=== PATIENT | male | born 1965 | race Caucasian/White ===

== ENCOUNTER 2016-10-07 12:02 | Emergency (ER) | payer OTHER ==
--- NOTE | 2016-10-07 13:34 | DIAGNOSTIC IMAGING REPORT ---
PROCEDURE: XR CHEST 2 VIEW INDICATION: COUGH TECHNIQUE: PA and lateral views. COMPARISON: None. FINDINGS: Lungs are clear and hyperexpanded. Heart and mediastinum are normal. Thorax is normal. IMPRESSION: 1. Negative chest. COPD
--- NOTE | 2016-10-07 13:43 | ED ORDER SUMMARY ---
..... Patient: POONAM GODOY OrderSheet [facility] VisitID: [id number] [address] [place] [address] 51y, M Registration Date/Time: 10/07/2016 ORDER SHEET Weight: 83.9 kg (stated) Allergies: None GENERAL ORDERS: Chest 2V Urgent (13:01 10/07/2016 Mikala Parker) (Ack 13:10 NHouse ER Tech1) (13:51 JBoardley R.N.) MEDICATION ORDERS: DuoNeb Neb Tx 1 unit dose (NOW) (13:10/07/2016 Mikala Parker) (Ack 13:11 JBoardley R.N.) (Cancelled: Physician Order13:51 JBoarviky R.N.) IV FLUIDS: ORDER SHEET NOTES: [Electronically signed by Ray Benitez R.N. (14:00 10/07/2016)] [Electronically signed by Clementine Dockery P.A.-C (14:06 10/07/2016)] [Electronically locked/signed by Ray Benitez R.N. (14:00 10/07/2016)]
--- NOTE | 2016-10-07 13:43 | ED ORDER SUMMARY ---
..... Patient: POONAM GODOY OrderSheet [facility] VisitID: [id number] [address] [place] [address] 51y, M Registration Date/Time: 10/07/2016 ORDER SHEET Weight: 83.9 kg (stated) Allergies: None GENERAL ORDERS: Chest 2V Urgent (13:01 10/07/2016 Mikala Parker) (Ack 13:10 NHouse ER Tech1) (13:51 JBoardley R.N.) MEDICATION ORDERS: DuoNeb Neb Tx 1 unit dose (NOW) (13:10/07/2016 Mikala Parker) (Ack 13:11 JBoardley R.N.) (Cancelled: Physician Order13:51 JBoarviky R.N.) IV FLUIDS: ORDER SHEET NOTES: [Electronically signed by Ray Benitez R.N. (14:00 10/07/2016)] [Electronically signed by Clementine Dockery P.A.-C (14:06 10/07/2016)] [Electronically locked/signed by Ray Benitez R.N. (14:00 10/07/2016)]
--- NOTE | 2016-10-07 13:43 | ED CLINICAL REPORT ---
Clinical Report - Physicians/Mid Levels [facility] [address] [place] [address] 10/07/2016 12:06 Patient: POONAM GODOY Time Seen: 12:55 Oct 07 2016. Arrived- By private vehicle. Historian- patient. 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 It has been intermittent and waxing/waning. The patient has had sputum production and a cough. (she reports battling a cough over the last 1 month, has had a history of sore throat, chills, on the measured temperature. His girlfriend has had similar symptoms, for about the same time. He has not been seen by his regular primary care provider in [place]. Has taken Mucinex [id number], with minimal relief. Reports he is a smoker, pack every 2-3 days. Denies any recent travel. Denies any hemoptysis. Denies chest pain, epigastric pain. Reports at times rhinorrhea or congestion. Denies shortness of breath. Denies taking breathing treatments on a regular basis, or history of asthma or COPD. Has not been on antibiotics or steroids recently.). REVIEW OF SYSTEMS No vomiting, diarrhea, hay fever, skin rash or enlarged lymph nodes. All systems otherwise negative, except as recorded above. PAST HISTORY Problems: no known problems. Additional Surgeries: Right ankle surgery. Medications: None. Allergies: None. SOCIAL HISTORY Smoker- current status unknown. No alcohol use. ADDITIONAL NOTES The nursing notes have been reviewed. PHYSICAL EXAM Vital Signs: 10/07/2016 12:28 BP: 148/95. HR: 87. RR: 14. O2 saturation: 99%. Temp: 97.9 F. Have been reviewed. Appearance: Alert. No acute distress. Eyes: Eyes normal inspection. CVS: Normal heart rate and rhythm. Heart sounds normal. Respiratory: Expiratory mild bilateral wheezes present. No accessory muscle use or retractions. Abdomen: Soft. LABS, X-RAYS, AND EKG Chest X-ray: (IMPRESSION: 1. Negative chest. COPD Electronically Final signed by:Gab Perkins MD 10/07/2016 1:38:12 PM). PROGRESS AND PROCEDURES Course of Care: patient here in the ER, with wheezing which improved with cough. Patient was otherwise negative chest x-ray for any acute infiltrate. Patient with no chest pain, no hemoptysis, will treat for acute flare of bronchitis, and with underlying COPD. Patient to follow up outpatient, and reactive to his high blood pressure reading today. He otherwise has no headache. Wheezing resolved. NO systemic disease process. 10/07/2016 13:51 BP: 148/70. HR: 80. RR: 12. O2 saturation: 100%. Temp: 98.1 F. Patient is stable. Physical exam findings are improved. Symptoms better. Patient/family counseled. Disposition: Discharged. CLINICAL IMPRESSION Acute exacerbation of COPD. Hypertension. INSTRUCTIONS Rest. Drink plenty of fluids. (hydrate plenty). Prescription Medications: Ventolin HFA oral inhaler: inhale 1 puff via spacer every 4 hours for 1 week, as needed for wheezing, until symptoms improve. Dispense one (1) unit Substitution is not permissible. Zithromax 250 mg tablets: take 2 orally today, followed by 1 daily for the next 4 days. No refills. Substitution is permissible. Follow-up: Follow up with your doctor in three days. (Electronically signed by Clementine Dockery P.A.-C 10/07/2016 14:06)
--- NOTE | 2016-10-07 13:43 | ED NURSING NOTES ---
Clinical Report - Nurses [facility] [place] [address] 10/07/2016 12:06 Patient: POONAM GODOY TRIAGE Triage time 12:28. Acuity: LEVEL 4. Chief Complaint: COUGH. 12:10/07/16. 12:10/07/16. --12:31 Ray Benitez R.N. 12:10/07/16. BP: 148/95. HR: 87. RR: 14. O2 saturation: 99% on room air. Temp: 97.9 F (oral). --12:31 Ray Benitez R.N. Weight: 83.9 kg stated. Height/Length: 70 inches Per Patient. BMI: 26.5. --12:29 Ray Benitez R.N. Medications None. --12:31 Ray Benitez R.N. Medication/allergy information source: the patient. --12:31 Ray Benitez R.N. Allergies None. --12:31 Ray Benitez R.N. History Arrived by private vehicle. Historian: patient. Primary physician ([facility]). 12:10/07/16. Onset. (Off and on for one month). 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 PAST MEDICAL HX: Immunizations not up to date. SOCIAL HX: Current every day light tobacco smoker (cigarette)- less than 1/2 a pack per day. No alcohol use or drug use. No infectious disease exposure. ABUSE ASSESSMENT: No report of abuse. FALL RISK ASSESSMENT: Fall risk assessment completed. No fall risk identified. NUTRITIONAL RISK ASSESSMENT: The nutritional risk assessment revealed no deficiencies. FUNCTIONAL ASSESSMENT: Functional assessment: no impairments noted. LEARNING NEEDS ASSESSMENT: The learning needs assessment revealed no barriers. SKIN INTEGRITY ASSESSMENT: Skin integrity risk assessment completed. No skin integrity risk identified. --12:31 Ray Benitez R.N. PROBLEMS: no known problems. ADDITIONAL SURGERIES: Right ankle surgery. --12:31 Ray Benitez R.N. Assessment 12:28 10/07/16. --12:31 Ray Benitez R.N. Interventions 12:28 10/07/16. 12:10/07/16. ID and allergy band on patient. --12:31 Ray Benitez R.N. PHYSICAL ASSESSMENT 12:10/07/16. Ambulatory to room. GENERAL / NEURO / PSYCH: Alert. Oriented X 4. Appears in no acute distress. RESPIRATORY: Respirations not labored. CVS: Capillary refill less than 2 seconds. SKIN: Skin is warm and dry. --12:31 Ray Benitez R.N. NURSING PROGRESS NOTES 12:32 10/07/16. The plan of care for this patient has been created. Head of bed elevated. Two patient identifiers checked. Call light placed in reach. Side rails up x 2. Bed placed in lowest position. Brakes of bed on. Brakes of chair on. --12:32 Ray Benitez R.N. 12:32 10/07/16. Patient ready for evaluation- chart flagged and notification provided. --12:32 Ray Benitez R.N. 13:05 10/07/16. ( Pt to have x-ray and also breathing treatment by RT). --13:05 Ray Benitez R.N. DISPOSITION / DISCHARGE Condition at departure: improved. The goals identified in the patient's plan of care were met. No learning barriers present. Discharge instructions provided and reviewed with the patient. Reviewed warnings. Reviewed medication(s). Treatments reviewed. Patient verbalized understanding. Written instructions provided in Cameroonian. The patient was discharged by the physician tv production assistant. He was discharged home. He left the Emergency Department ambulatory. Family member driving. FALL RISK ASSESSMENT: Fall risk assessment completed. No fall risk identified. --13:52 Ray Benitez R.N. 13:51 10/07/16. BP: 148/70. HR: 80. RR: 12. O2 saturation: 100% on room air. Temp: 98.1 F (oral). --13:52 Ray Benitez R.N. 13:52 10/07/16. Departure time: 13:52. --13:53 Ray Benitez R.N. Locked/Released at 10/07/2016 14:00 by Ray Benitez R.N.
--- NOTE | 2016-10-07 13:43 | ED NURSING NOTES ---
Clinical Report - Nurses [facility] [place] [address] 10/07/2016 12:06 Patient: POONAM GODOY TRIAGE Triage time 12:28. Acuity: LEVEL 4. Chief Complaint: COUGH. 12:10/07/16. 12:10/07/16. --12:31 Ray Benitez R.N. 12:10/07/16. BP: 148/95. HR: 87. RR: 14. O2 saturation: 99% on room air. Temp: 97.9 F (oral). --12:31 Ray Benitez R.N. Weight: 83.9 kg stated. Height/Length: 70 inches Per Patient. BMI: 26.5. --12:29 Ray Benitez R.N. Medications None. --12:31 Ray Benitez R.N. Medication/allergy information source: the patient. --12:31 Ray Benitez R.N. Allergies None. --12:31 Ray Benitez R.N. History Arrived by private vehicle. Historian: patient. Primary physician ([facility]). 12:10/07/16. Onset. (Off and on for one month). 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 PAST MEDICAL HX: Immunizations not up to date. SOCIAL HX: Current every day light tobacco smoker (cigarette)- less than 1/2 a pack per day. No alcohol use or drug use. No infectious disease exposure. ABUSE ASSESSMENT: No report of abuse. FALL RISK ASSESSMENT: Fall risk assessment completed. No fall risk identified. NUTRITIONAL RISK ASSESSMENT: The nutritional risk assessment revealed no deficiencies. FUNCTIONAL ASSESSMENT: Functional assessment: no impairments noted. LEARNING NEEDS ASSESSMENT: The learning needs assessment revealed no barriers. SKIN INTEGRITY ASSESSMENT: Skin integrity risk assessment completed. No skin integrity risk identified. --12:31 Ray Benitez R.N. PROBLEMS: no known problems. ADDITIONAL SURGERIES: Right ankle surgery. --12:31 Ray Benitez R.N. Assessment 12:28 10/07/16. --12:31 Ray Benitez R.N. Interventions 12:28 10/07/16. 12:10/07/16. ID and allergy band on patient. --12:31 Ray Benitez R.N. PHYSICAL ASSESSMENT 12:10/07/16. Ambulatory to room. GENERAL / NEURO / PSYCH: Alert. Oriented X 4. Appears in no acute distress. RESPIRATORY: Respirations not labored. CVS: Capillary refill less than 2 seconds. SKIN: Skin is warm and dry. --12:31 Ray Benitez R.N. NURSING PROGRESS NOTES 12:32 10/07/16. The plan of care for this patient has been created. Head of bed elevated. Two patient identifiers checked. Call light placed in reach. Side rails up x 2. Bed placed in lowest position. Brakes of bed on. Brakes of chair on. --12:32 Ray Benitez R.N. 12:32 10/07/16. Patient ready for evaluation- chart flagged and notification provided. --12:32 Ray Benitez R.N. 13:05 10/07/16. ( Pt to have x-ray and also breathing treatment by RT). --13:05 Ray Benitez R.N. DISPOSITION / DISCHARGE Condition at departure: improved. The goals identified in the patient's plan of care were met. No learning barriers present. Discharge instructions provided and reviewed with the patient. Reviewed warnings. Reviewed medication(s). Treatments reviewed. Patient verbalized understanding. Written instructions provided in Botswanan. The patient was discharged by the physician psychology assistant. He was discharged home. He left the Emergency Department ambulatory. Family member driving. FALL RISK ASSESSMENT: Fall risk assessment completed. No fall risk identified. --13:52 Ray Benitez R.N. 13:51 10/07/16. BP: 148/70. HR: 80. RR: 12. O2 saturation: 100% on room air. Temp: 98.1 F (oral). --13:52 Ray Benitez R.N. 13:52 10/07/16. Departure time: 13:52. --13:53 Ray Benitez R.N. Locked/Released at 10/07/2016 14:00 by Ray Benitez R.N.
--- NOTE | 2016-10-07 13:43 | ED CLINICAL REPORT ---
Clinical Report - Physicians/Mid Levels [facility] [address] [place] [address] 10/07/2016 12:06 Patient: POONAM GODOY Time Seen: 12:55 Oct 07 2016. Arrived- By private vehicle. Historian- patient. 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 It has been intermittent and waxing/waning. The patient has had sputum production and a cough. (she reports battling a cough over the last 1 month, has had a history of sore throat, chills, on the measured temperature. His girlfriend has had similar symptoms, for about the same time. He has not been seen by his regular primary care provider in [place]. Has taken Mucinex [id number], with minimal relief. Reports he is a smoker, pack every 2-3 days. Denies any recent travel. Denies any hemoptysis. Denies chest pain, epigastric pain. Reports at times rhinorrhea or congestion. Denies shortness of breath. Denies taking breathing treatments on a regular basis, or history of asthma or COPD. Has not been on antibiotics or steroids recently.). REVIEW OF SYSTEMS No vomiting, diarrhea, hay fever, skin rash or enlarged lymph nodes. All systems otherwise negative, except as recorded above. PAST HISTORY Problems: no known problems. Additional Surgeries: Right ankle surgery. Medications: None. Allergies: None. SOCIAL HISTORY Smoker- current status unknown. No alcohol use. ADDITIONAL NOTES The nursing notes have been reviewed. PHYSICAL EXAM Vital Signs: 10/07/2016 12:28 BP: 148/95. HR: 87. RR: 14. O2 saturation: 99%. Temp: 97.9 F. Have been reviewed. Appearance: Alert. No acute distress. Eyes: Eyes normal inspection. CVS: Normal heart rate and rhythm. Heart sounds normal. Respiratory: Expiratory mild bilateral wheezes present. No accessory muscle use or retractions. Abdomen: Soft. LABS, X-RAYS, AND EKG Chest X-ray: (IMPRESSION: 1. Negative chest. COPD Electronically Final signed by:Gab Perkins MD 10/07/2016 1:38:12 PM). PROGRESS AND PROCEDURES Course of Care: patient here in the ER, with wheezing which improved with cough. Patient was otherwise negative chest x-ray for any acute infiltrate. Patient with no chest pain, no hemoptysis, will treat for acute flare of bronchitis, and with underlying COPD. Patient to follow up outpatient, and reactive to his high blood pressure reading today. He otherwise has no headache. Wheezing resolved. NO systemic disease process. 10/07/2016 13:51 BP: 148/70. HR: 80. RR: 12. O2 saturation: 100%. Temp: 98.1 F. Patient is stable. Physical exam findings are improved. Symptoms better. Patient/family counseled. Disposition: Discharged. CLINICAL IMPRESSION Acute exacerbation of COPD. Hypertension. INSTRUCTIONS Rest. Drink plenty of fluids. (hydrate plenty). Prescription Medications: Ventolin HFA oral inhaler: inhale 1 puff via spacer every 4 hours for 1 week, as needed for wheezing, until symptoms improve. Dispense one (1) unit Substitution is not permissible. Zithromax 250 mg tablets: take 2 orally today, followed by 1 daily for the next 4 days. No refills. Substitution is permissible. Follow-up: Follow up with your doctor in three days. (Electronically signed by Clementine Dockery P.A.-C 10/07/2016 14:06)
--- NOTE | 2016-10-07 14:06 | ED MED RECONCILIATION SUMMARY ---
Patient: POONAM GODOY Medication Reconciliation Report [facility] VisitID: [id number] [address] [place] [address] 51y, M Registration Date/Time: 10/07/2016 Weight: 83.9 kg Height/Length: 70 in. BMI: 26.5 ALLERGIES: None The patient's Home Medications are listed below: NONE. The source(s) of the original Home Medication information: patient The following Medications were given to the patient in the Emergency Department: None. The following Medications were prescribed to the patient: Ventolin HFA oral inhaler: inhale 1 puff via spacer every 4 hours for 1 week, as needed for wheezing, until symptoms improve. Dispense one (1) unit Substitution is not permissible. -- Clementine Dockery, P.A.[place] Zithromax 250 mg tablets: take 2 orally today, followed by 1 daily for the next 4 days. No refills. Substitution is permissible. -- Clementine Dockery, P.A.[place]
--- NOTE | 2016-10-07 14:06 | ED MAR SUMMARY ---
..... Medication Administration Record [facility] [address] [place], [place] [id number] Patient: POONAM GODOY Visit ID: [id number] 51y, M Weight: 83.9 kg Height/Length: 70 in BMI: 26.5 ALLERGIES: None
--- NOTE | 2016-10-07 14:06 | ED MAR SUMMARY ---
..... Medication Administration Record [facility] [address] [place], [place] [id number] Patient: POONAM GODOY Visit ID: [id number] 51y, M Weight: 83.9 kg Height/Length: 70 in BMI: 26.5 ALLERGIES: None
--- NOTE | 2016-10-07 14:06 | ED DISCHARGE INSTRUCTIONS ---
Patient: POONAM GODOY General Instructions [facility] VisitID: [id number] [place] [address] 51y, M Registration Date/Time: 10/07/2016 Acute exacerbation of COPD. Hypertension. INSTRUCTIONS Rest. Drink plenty of fluids. (hydrate plenty). Prescription Medications: Ventolin HFA oral inhaler: inhale 1 puff via spacer every 4 hours for 1 week, as needed for wheezing, until symptoms improve. Dispense one (1) unit Substitution is not permissible. Zithromax 250 mg tablets: take 2 orally today, followed by 1 daily for the next 4 days. No refills. Substitution is permissible. Follow-up: Follow up with your doctor in three days. ADDITIONAL INFORMATION COPD Flare Both emphysema and chronic bronchitis are forms of chronic obstructive pulmonary disease (COPD). It is most often caused by many years of smoking tobacco. Many things can make your lung disease suddenly get worse. These causes include the common cold, pneumonia, acute bronchitis, missing doses of your regular breathing medicines, or being around smoke, dust, or other air pollutants. A COPD flare may last 7 to 14 days. Your doctor may prescribe medicineto relax your airways and prevent wheezing. Your doctor may also prescribe antibiotics if he or she thinks you havea bacterial infection. Prednisone can helpease inflammation in a severe attack. Home care Here are things you can do at home: Drink lots of water or other fluids (at least 10 glasses a day) during an attack. This will loosen lung secretions and make it easier to breathe. If you have heart or kidney disease, check with your doctor before you drink extra amounts of fluids. Take prescribed medicine exactly at the times advised. If you have a hand-held inhaler or aerosol breathing medicine, don't use it more than once every 4 hours, unless your doctor tells you to. If you were givenan antibiotic or prednisone, take all of the medicine even if you are feeling better after a few days. Don't smoke. Avoid being aroundthe smoke of others. If you were given an inhaler, use it exactly as directed. If you need to use it more often than prescribed, your condition may be getting worse. Call your doctor. Follow-up care Follow up with your health care provider.If you are 65 or older or have chronic asthma or COPD, you should get a single dose of the pneumococcal vaccine and aflu shot each year. You may need a second dose of the pneumococcal vaccine if you had the first dose at a younger age. Your health care provider will let you know if you need a second dose. For all other people, the usual dose for the pneumococcal vaccine is 1 or 2 shots. Yourprovider can discuss this with you. When to seek medical care Get prompt medical attention ifany of these occur: Increased wheezing or shortness of breath Need to use your inhalers more often than usual without relief Fever of 100.4F(38C) or higher, or as directed by your health care provider Coughing up lots of dark-colored or bloody sputum (mucus) Chest pain with each breath You do not start to improve within 24 hours Bronchitis (Adult: Abx Tx) BRONCHITIS is an infection of the air passages (bronchial tubes). It often occurs during the common cold. Symptoms include cough with mucus (phlegm) and low-grade fever. Bronchitis usually lasts 7-14 days. Mild cases can be treated with simple home remedies. More severe infection is treated with an antibiotic. Home Care: If symptoms are severe, rest at home for the first 2-3 days. When you resume activity, don't let yourself get too tired. Do not smoke. Avoid being exposed to the smoke of others. You may use acetaminophen (Tylenol) or ibuprofen (Motrin, Advil) to control fever or pain, unless another medicine was prescribed for this. [NOTE: If you have chronic liver or kidney disease or ever had a stomach ulcer or GI bleeding, talk with your doctor before using these medicines.] Your appetite may be poor, so a light diet is fine. Avoid dehydration by drinking 6-8 glasses of fluids per day (water, soft, drinks, juices, tea, soup, etc.). Extra fluids will help loosen secretions in the lungs. [id number] cough medicines that containdextromethorphan(such as Robitussin DM) and decongestants (Actifed or Sudafed) may help relieve cough and congestion. [NOTE: Do not use decongestants if you have high blood pressure.] Finish all antibiotic medicine, even if you are feeling better after only a few days. Follow Up with your doctor or as directed if you dont start to feel better after three days. [NOTE: If you are age 65 or older, or if you have chronic asthma or COPD, we recommend a PNEUMOCOCCAL VACCINATION every five years and a yearly INFLUENZAVACCINATION (FLU-SHOT) every . Ask your doctor about this. If you had an X-ray, a radiologist will review it. You will be notified of any new findings that may affect your care.] Get Prompt Medical Attention if any of the following occur: Fever over 100.4F (38.0C) for more than three days Trouble breathing, wheezing or pain with breathing Coughing up blood or increased amounts of colored sputum Weakness, drowsiness, headache, facial pain, ear pain or a stiff neck Albuterol Sulfate Pressurized inhalation, suspension What is this medicine? ALBUTEROL (al BYOO ter ole) is a bronchodilator. It helps open up the airways in your lungs to make it easier to breathe. This medicine is used to treat and to prevent bronchospasm. How should I use this medicine? This medicine is for inhalation through the mouth. Follow the directions on your prescription label. Take your medicine at regular intervals. Do not use more often than directed. Make sure that you are using your inhaler correctly. Ask you doctor or health care provider if you have any questions. Talk to your ese teacher regarding the use of this medicine in children. Special care may be needed. What side effects may I notice from receiving this medicine? Side effects that you should report to your doctor or health reproductive healthcare assistant as soon as possible: allergic reactions like skin rash, itching or hives, swelling of the face, lips, or tongue breathing problems chest pain feeling faint or lightheaded, falls high blood pressure irregular heartbeat fever muscle cramps or weakness pain, tingling, numbness in the hands or feet vomiting Side effects that usually do not require medical attention (report to your doctor or health reproductive healthcare assistant if they continue or are bothersome): cough difficulty sleeping headache nervousness or trembling stomach upset stuffy or runny nose throat irritation unusual taste What may interact with this medicine? anti-infectives like chloroquine and pentamidine caffeine cisapride diuretics medicines for colds medicines for depression or for emotional or psychotic conditions medicines for weight loss including some herbal products methadone some antibiotics like clarithromycin, erythromycin, levofloxacin, and linezolid some heart medicines steroid hormones like dexamethasone, cortisone, hydrocortisone theophylline thyroid hormones What if I miss a dose? If you miss a dose, use it as soon as you can. If it is almost time for your next dose, use only that dose. Do not use double or extra doses. Where should I keep my medicine? Keep out of the reach of children. Store at room temperature between 15 and 30 degrees C (59 and 86 degrees F). The contents are under pressure and may burst when exposed to heat or flame. Do not freeze. This medicine does not work as well if it is too cold. Throw away any unused medicine after the expiration date. Inhalers need to be thrown away after the labeled number of puffs have been used or by the expiration date; whichever comes first. Ventolin HFA should be thrown away 12 months after removing from foil pouch. Check the instructions that come with your medicine. What should I tell my health care provider before I take this medicine? They need to know if you have any of the following conditions: diabetes heart disease or irregular heartbeat high blood pressure pheochromocytoma seizures thyroid disease an unusual or allergic reaction to albuterol, levalbuterol, sulfites, other medicines, foods, dyes, or preservatives or trying to get breast-feeding What should I watch for while using this medicine? Tell your doctor or health reproductive healthcare assistant if your symptoms do not improve. Do not use extra albuterol. If your asthma or bronchitis gets worse while you are using this medicine, call your doctor right away. If your mouth gets dry try chewing sugarless gum or sucking hard candy. Drink water as directed. You have been given the following additional information: COPD Flare Bronchitis, Antiobiotic Treatment (Adult) Albuterol Sulfate Pressurized inhalation, suspension Rest. (Electronically signed by Clementine Dockery P.A.-C 10/07/2016 14:06)
--- NOTE | 2016-10-07 14:06 | ED MED RECONCILIATION SUMMARY ---
Patient: POONAM GODOY Medication Reconciliation Report [facility] VisitID: [id number] [address] [place] [address] 51y, M Registration Date/Time: 10/07/2016 Weight: 83.9 kg Height/Length: 70 in. BMI: 26.5 ALLERGIES: None The patient's Home Medications are listed below: NONE. The source(s) of the original Home Medication information: patient The following Medications were given to the patient in the Emergency Department: None. The following Medications were prescribed to the patient: Ventolin HFA oral inhaler: inhale 1 puff via spacer every 4 hours for 1 week, as needed for wheezing, until symptoms improve. Dispense one (1) unit Substitution is not permissible. -- Clementine Dockery, P.A.[place] Zithromax 250 mg tablets: take 2 orally today, followed by 1 daily for the next 4 days. No refills. Substitution is permissible. -- Clementine Dockery, P.A.[place]
== END 2016-10-07 13:53 | disposition home or self-care (01) ==
LOC: ED SRH 12:02
DX: J44.1 Chronic obstructive pulmonary disease with (acute) exacerbation (principal); I10 Essential (primary) hypertension